=== PATIENT | female | born 1935 | race Two or more races ===

== ENCOUNTER 2018-10-04 13:46 | Emergency (ER) | payer OTHER, MEDICAID ==
[~2018-10-04] VITALS: Ht 165.1 cm; Wt 63.5 kg
[2018-10-04 13:50] VITALS: BP 156/76
[2018-10-04] MEDS ORDERED: Norco 5mg/325mg tab PO ONE (14:00)
--- NOTE | 2018-10-04 14:00 | NUR ---
ED Nurse Note: pt came in via ems a/ox3, nad noted, tripped and fell at home c/o rt knee pain 07/12, dr nieves at the bedside for eval. placed pt in bed 9, xray at the bedside, given meds per er md order, will cont to monitor
--- NOTE | 2018-10-04 14:01 | Emergency Room Report ---
History of Present Illness General Chief Complaint: Multiple Trauma/Fall Source: Patient Present Illness HPI Pt with fall twisting her R leg under her. C/O ankle and knee pain. No loss of consciousness. There is no numbness. Pain is rated 8/10 more below the knee radiating down to the ankle and constant. She is unable to bear weight. Patient was transported by paramedics. She denies head trauma or loss of consciousness. She is not on blood thinners. No fevers, chills, chest pain, palpitations, nausea, vomiting, diarrhea, dysuria , abdominal pain, shortness of breath, depression, visual changes, headache. History of hypertension and hypothyroidism. She did not take her blood pressure medication today. Allergies: Coded Allergies: No Known Allergies (Unverified , 10/04/18) Patient History Past Medical History: see triage record Social History: Denies: smoking, alcohol use Social History Narrative Now: No Reviewed Nursing Documentation: PMH: Agreed; PSxH: Agreed Nursing Documentation-PMH Past Medical History: No History, Except For Hx Hypertension: Yes Review of Systems All Other Systems: negative except mentioned in HPI Physical Exam Vital Signs Date Time Temp Pulse Resp B/P (MAP) Pulse Ox O2 Delivery O2 Flow Rate FiO2 10/04/18 13:44 98.1 76 16 156/76 100 Room Air Sp02 EP Interpretation: reviewed, normal General Appearance: well appearing, no apparent distress Head: normocephalic, atraumatic Eyes: bilateral eye normal inspection, bilateral eye PERRL ENT: hearing grossly normal, normal voice, moist mucus membranes Neck: full range of motion, supple, no bony tend Respiratory: chest non-tender, lungs clear, normal breath sounds, no respiratory distress, speaking full sentences Cardiovascular #1: regular rate, rhythm Gastrointestinal: normal bowel sounds, non tender, soft Genitourinary: no CVA tenderness Musculoskeletal: digits/nails normal, pelvis stable, other - Pain proximal fibula. Knee ligaments stable no drawer sign but painful range of motion from fibula. Lateral malleolus swelling without ligament laxity. No fifth metatarsal tenderness. Neurologic: alert, oriented x3, normal gait, grossly normal Psychiatric: mood/affect normal Skin: no rash, other - No ecchymoses or abrasions Medical Decision Making Diagnostic Impression: Primary Impression: Fracture, fibula, proximal Qualified Codes: S82.831A - Other fracture of upper and lower end of right fibula, initial encounter for closed fracture Additional Impressions: Ankle sprain Qualified Codes: S93.411A - Sprain of calcaneofibular ligament of right ankle , initial encounter HTN (hypertension) Qualified Codes: I10 - Essential (primary) hypertension ER Course Patient presents after losing her balance and twisting her right leg. Differential includes fracture, contusion, sprain. Evaluation with ankle x-ray and tib-fib x-rays. Patient will be treated with analgesia. There is no neurologic involvement at this time and no head injury. X-rays reveal a proximal fibular fracture. No ankle fracture. Patient improved with analgesia. Splint applied by tech. Position excellent with improved pain. Neurovasc normal. Blood pressure is elevated and the patient was given a dose of her antihypertensives. X-ray findings were discussed with the patient and her . Initially crutches were ordered however due to the concern of being unstable on her feet a wheelchair was ordered. In addition the patient was transported to home via ambulance. Patient stable for outpatient observation and treatment. Other X-Ray Diagnostic Results Other X-Ray Diagnostic Results #1: X-Ray ordered: Right tib-fib # of Views/Limited Vs Complete: 4 View Indication: Pain Interpretation: no dislocation, no soft tissue swelling, other - Proximal fibular fracture Impression: Other Electronically Signed by: Electronically signed by Liu Ceja MD Other X-Ray Diagnostic Results #2: X-Ray ordered: Right ankle # of Views/Limited Vs Complete: 3 View Indication: Pain EP Interpretation: Yes Interpretation: no dislocation, no fractures, other - Soft tissue swelling Impression: Other Electronically Signed by: Electronically signed by Liu Ceja MD Last Vital Signs Date Time Temp Pulse Resp B/P (MAP) Pulse Ox O2 Delivery O2 Flow Rate FiO2 10/04/18 17:35 183/82 10/04/18 17:15 98.1 85 16 100 Room Air Status: improved Disposition: HOME, SELF-CARE Condition: Improved Scripts Wheelchair (WHEELCHAIR) 1 Each Each EACH for leg fracture, #1 Prov: Liu Ceja MD 10/04/18 Lactulose (LACTULOSE*) 20 Gm/30 Ml Solution 30 ML ORAL BID, #240 ML 0 Refills Prov: Liu Ceja MD 10/04/18 Tramadol Hcl* (ULTRAM*) 50 Mg Tablet 50 MG ORAL Q6H PRN for For Pain, #10 TAB 0 Refills Prov: Liu Ceja MD 10/04/18 Ibuprofen* (MOTRIN*) 600 Mg Tablet 600 MG ORAL Q6H PRN for For Pain, #20 TAB Prov: Liu Ceja MD 10/04/18 Liu Ceja MD Oct 04, 2018 14:01
--- NOTE | 2018-10-04 14:48 | Diagnostic Imaging Report ---
Indication: right leg pain Comparison: None Findings: Two views of the right tibia and fibula were obtained. There is a fracture of the proximal fibula at the fibular neck. Bones are osteopenic. No other fractures are identified. IMPRESSION: Acute fracture of the proximal fibula
--- NOTE | 2018-10-04 14:49 | Diagnostic Imaging Report ---
Indication: Pain right ankle ankle pain/trauma Comparison: None Findings: 3 views of the right ankle obtained. No acute fracture, malalignment, periostitis, or osteochondral defects are identified. Mild soft tissue swelling laterally. Impression: Negative examination
--- NOTE | 2018-10-04 15:00 | NUR ---
HAND-OFF: Report given to Isac GUTIERREZ.
[2018-10-04] MEDS ORDERED: TRAMADOL HCL50 MG ORAL (15:55)
[2018-10-04] MEDS ORDERED: WHEELCHAIR1 EACH MC (15:55)
[2018-10-04] MEDS ORDERED: IBUPROFEN600 MG ORAL (15:55)
[2018-10-04] MEDS ORDERED: LACTULOSE20 GM/301 ORAL (15:55)
--- NOTE | 2018-10-04 17:15 | NUR ---
ED Nurse Note: patient is being discharged from ED alert and oriented x4, ambulatory with a steady gait, VSS, patient acknowledged the need to follow up with PMD within a week if symptoms dont improve, patient's prescriptions in hand, ID band and IV line removed
[2018-10-04] MEDS ORDERED: Losartan 25mg tab ORAL ONE (17:30)
[2018-10-04 17:35] VITALS: BP 183/82
== END 2018-10-04 17:15 | disposition home or self-care (01) ==
LOC: EDBD 13:46 → EMR 14:30
DX: S82.831A Other fracture of upper and lower end of right fibula, initial encounter for closed fracture (principal); S93.411A Sprain of calcaneofibular ligament of right ankle, initial encounter; I10 Essential (primary) hypertension; X50.1XXA Overexertion from prolonged static or awkward postures, initial encounter; Y92.9 Unspecified place or not applicable; E03.9 Hypothyroidism, unspecified
CPT/HCPCS: 29515; 99283